=== PATIENT | male | born 1945 | race Caucasian/White ===

== ENCOUNTER 2022-11-26 18:13 | Observation (INO) | payer OTHER, SELFPAY ==
[2022-11-26] VITALS (10 sets, daily range): BP systolic 99–143; BP diastolic 56–73; PULSE 82–98; RESP 16–23; TEMP 37.1; O2SAT 95–97
--- NOTE | ~2022-11-26 | XR_ITS ---
XR chest 1V portable 11/27/2022 06:34 Indication: Nausea and vomiting Procedure: AP portable chest Comparison: No prior studies for comparison. Findings: Heart size normal. There are bilateral interstitial infiltrates. No pleural effusion or pne umothorax. Calcified granulomas are present. No acute osseous abnormality. Impression: 1: Bilateral interstitial infiltrates, likely mild interstitial edema. Reviewed, dictated and finalized at location A. [facility] [employer] Impression: 1: Bilateral interstitial infiltrates, likely mild interstitial edema.
[2022-11-26 18:40] LABS: Basophils Absolute Auto 0.1 K/mm3 (0.0-0.1); Basophils Percent Auto 0.5 % (0.2-1.2); Eosinophils Absolute Auto 1.3 K/mm3 (0-0.3); Eosinophils Percent Auto 10.3 % (0-4.4); Hematocrit 51.2 % (42.0-52.0); Hemoglobin 17.1 g/dL (14.0-18.0); Immature Granulocyte Absolute 0.04 K/mm3 (0.00-0.031); Immature Granulocyte Percent A 0.3 % (0-0.5); Lymphocytes Absolute Auto 0.59 K/mm3 (0.9-3.2); Lymphocytes Percent Auto 4.8 % (18.3-44.2); Mean Corpuscular HGB Conc 33.4 g/dl (32-36); Mean Corpuscular Hemoglobin 29.8 pg (26-34); Mean Corpuscular Volume 89.4 fl (80-100); Mean Platelet Volume 11.5 fl (7.4-10.4); Monocytes Absolute Auto 0.5 K/mm3 (0.1-0.6); Monocytes Percent Auto 4.3 % (2.6-8.5); Neutrophils Absolute Auto 9.8 K/mm3 (1.3-6.7); Neutrophils Percent Auto 79.8 % (45.5-73.1); Platelet Count Result 208 k/mm3 (150-375); Red Blood Count 5.73 M/mm3 (4.6-6.20); Red Cell Distribution Width 13.5 % (11.5-14.5); White Blood Count 12.3 K/mm3 (4.5-10.0)
[2022-11-26 18:50] LABS: Alanine Aminotransferase 28 U/L (6-50); Albumin Level 3.6 g/dL (3.5-5.1); Alkaline Phosphatase 136 U/L (38-126); Anion Gap 9 mmol/L (8-16); Aspartate Amino Transferase 28 U/L (17-59); Bilirubin,Total 0.8 mg/dL (0.2-1.3); Blood Urea Nitrogen 26 mg/dL (9-20); Calcium 8.5 mg/dL (8.4-10.2); Carbon Dioxide 26 mmol/L (22-30); Chloride 106 mmol/L (98-107); Estimated CRCL calculation 47 ml/min; Estimated Glomerular Filt Rate 49; Glucose 154 mg/dL (65-110); Lipase 105 U/L (23-300); Potassium 3.9 mmol/L (3.4-5.0); Sodium 141 mmol/L (137-145)
--- NOTE | 2022-11-26 19:11 | ED.GENADULT ---
HPI - General Adult General Chief complaint: Nausea/Vomiting/Diarrhea Stated complaint: N/V/D Time Seen by Provider: 11/26/22 18:47 History of Present Illness HPI narrative: 69-year-old male presented to the emergency department for evaluation of nausea vomiting and diarrhea that started this morning. Patient states since approximately 7 AM he has had multiple bouts of diarrhea and vomiting. Patient states he did attempt to take some Imodium that this did help with the diarrhea. Patient states he now just has complaint of generalized weakness. Patient denies any associated abdominal pain. Patient does have history of high cholesterol, hypertension. Patient denies any abdominal surgical history. Family was present during the interview. Related Data Allergies Allergy/AdvReac Type Severity Reaction Status Date / Time No Known Allergies Allergy Verified 11/26/22 21:28 Review of Systems Review of Systems: CONSTITUTIONAL: Denies fever, chills, or sweats. EYES: Denies visual changes, redness, or discharge. ENT: Denies rhinorrhea, congestion, sore throat, or otalgia. CARDIOVASCULAR: Denies chest pain, palpitations, or edema. RESPIRATORY: Denies cough or dyspnea. GASTROINTESTINAL: See HPI GENITOURINARY: Denies dysuria or hematuria. SKIN: Denies rash or itching. MUSCULOSKELETAL: Denies back pain, joint pain, or myalgia. NEUROLOGIC: Denies headache, numbness, or weakness. Exam Narrative: APPEARANCE: Well appearing, no pain, no distress, well-nourished. HEAD: normocephalic, atraumatic. EYES: PERRLA/EOMI, conjunctivae clear. NOSE: Normal no drainage NECK: Supple. No adenopathy, no masses. RESPIRATORY: Airway patent, respirations nonlabored. Clear to auscultation bilaterally, no rales, rhonchi, wheezing. CARDIOVASCULAR: Regular rate and rhythm without murmurs rubs or gallops. ABDOMINAL: Soft, nontender, nondistended, increased bowel sounds MUSCULOSKELETAL: Moves all extremities. Strength/ROM intact, No edema, No calf tenderness. NEURO: Alert. Cranial nerves II through XII intact. Grossly intact SKIN: Warm, dry. Normal Color Course Course Emergency Course: Patient denies any pain and has no abdominal tenderness to palpation. Patient has a nonsurgical abdomen. Patient will have labs ordered to rule out any significant electrolyte abnormalities. No concern for obstruction. With no pain I have less concern for diverticulitis or colitis. Patient does feel improved with treatment. Patient does have a leukocytosis. Patient's CMP shows no significant abnormalities. Patient does have a mild BROWN but patient's baseline creatinine is unknown. Patient was treated with 1 L normal saline and IV Zofran. Patient is tolerating p.o. Patient does feel improved. Prior to discharge patient did have orthostatic vital signs and was still very orthostatic. Patient felt excessively weak and was unable to ambulate. Patient was treated with a second liter of normal saline. Case was discussed with hospitalist and patient was accepted for admission. Family was comfortable with the plan for admission. All questions and concerns were addressed. Vital Signs Vital signs: Vital Signs Temperature 98.8 F 11/26/22 18:14 Pulse Rate 98 11/26/22 18:14 Respiratory Rate 20 11/26/22 18:14 Blood Pressure 143/73 H 11/26/22 18:14 Pulse Oximetry 96 11/26/22 18:14 Oxygen Delivery Room Air 11/26/22 18:14 Temperature 98.8 F 11/26/22 18:14 Pulse Rate 84 11/26/22 21:37 Respiratory Rate 23 H 11/26/22 21:37 Blood Pressure 113/61 11/26/22 21:37 Pulse Oximetry 96 11/26/22 21:37 Oxygen Delivery Room Air 11/26/22 18:14 Medical Decision Making Vital Signs Vital Signs: Vital Signs Temperature 98.8 F 11/26/22 18:14 Pulse Rate 98 11/26/22 18:14 Respiratory Rate 20 11/26/22 18:14 Blood Pressure 143/73 H 11/26/22 18:14 Pulse Oximetry 96 11/26/22 18:14 Oxygen Delivery Room Air 11/26/22 18:14 Temperatu
--- NOTE | 2022-11-26 19:12 | PC.NURSE ---
1909 Assumed pt care from Pretty Robert RN
[2022-11-26] MEDS: ONDANSETRON INJ 4 MG/2 ML VIAL IV PUSH (19:39)
[2022-11-26] MEDS: SODIUM CHLORIDE 0.9% IV 1,000 ML 999 ML IV CONT ×2 (19:39→21:28)
--- NOTE | 2022-11-26 21:43 | PM.IMHP ---
H&P: HPI History of Present Illness Date/Time: 11/26/22 21:43 Chief Complaint: Generalized weakness Narrative: This is a 77-year-old male with past medical history significant for hypertension, chronic kidney disease, dyslipidemia. Was brought to the emergency room via EMS due to generalized weakness unable to get out from bed after having 1 day of numerous episodes of nausea vomiting and diarrhea. Patient denies any fevers, rigors, chills, syncope, near syncope in emergency room received IV fluids and upon checking orthostatic hypotension patient became hypotensive upon standing. Preliminary workup was significant for a creatinine of 1.4 mild leukocytosis of 12,000. Review of Systems Review of Systems: Generalized weakness Constitutional: Constitutional: Denies chills, Denies fever(s), Denies malaise, Denies night sweats, Denies poor appetite and Reports weakness Eyes: Eyes: Denies change in vision ENT: Denies dysphagia, Denies vertigo, Denies dizziness and Denies odynophagia Cardiovascular: Cardiovascular: Denies chest pain, Denies leg edema, Reports lightheadedness, Denies radiating jaw, neck or arm pain and Denies palpitations Respiratory: Respiratory: Denies cough Gastrointestinal: Gastrointestinal: Denies abdominal pain, Denies nausea and Denies vomiting Genitourinary: Genitourinary: Denies dysuria Musculoskeletal: Musculoskeletal: Denies myalgias and Reports muscle weakness Integumentary/Breasts: Skin/Breast: Denies rash Neurologic: Denies vertigo, Denies dizziness, Denies focal weakness and Denies Sensory deficit (Neuro) Psychiatric: Psychiatric: Reports no additional psychiatric complaints and Reports as per HPI Endocrine: Endocrine: Denies cold intolerance, Denies flushing, Denies heat intolerance, Denies polyphagia, Denies polydipsia and Denies palpitations Hematologic/Lymphatic: Hematologic/Lymphatic: Reports no additional hematologic/lymphatic complaints and Reports as per HPI Allergic/Immunologic: Allergic/Immunologic: Reports no additional allergic/immunologic complaints and Reports as per HPI PMF Family History Family History (Updated 11/26/22 @ 23:53 by Ene Wilson RN) Other Unknown family medical history Social History Social History Smoking status: Former smoker Tobacco type: cigarettes Alcohol intake: never Substance use: never Lack of Transportation: No Lack of Food: Never True Current Housing: I Have Housing Concerned About Future Housing: No Difficulty Paying Gas/Electric Bills: No Difficulty Paying for Meds: No Currently Unemployed: No Education: High School Diploma/GED Difficulty w/ Childcare or Family Care: No Spiritual care concerns: No Meds Home Medications and Allergies Home Medications Medication Instructions Recorded Confirmed Type amlodipine 2.5 mg tablet 7.5 mg PO DAILY 11/26/22 History cyanocobalamin (vitamin B-12) 500 500 mcg PO DAILY 11/26/22 History mcg tablet (Vitamin B-12) lisinopril 40 mg tablet 40 mg PO DAILY 11/26/22 History simvastatin 40 mg tablet 20 mg PO HS 11/26/22 History vit C 250 mg-vit E 200 unit-zinc 1 tablet PO QAM AND QPM 11/26/22 History 12.5 mg-copper 1 [id number] tablet (ICaps AREDS2 (copper citrate)) Allergies Allergy/AdvReac Type Severity Reaction Status Date / Time No Known Allergies Allergy Verified 11/26/22 21:28 Vital Signs Vital Signs - 24 hr 11/26/22 18:14 11/26/22 18:48 11/26/22 20:00 Temperature 98.8 F Pulse Rate 98 90 84 Respiratory Rate 20 20 16 Blood Pressure 143/73 H 105/71 125/63 Pulse Oximetry 96 97 97 Oxygen Delivery Room Air 11/26/22 20:45 11/26/22 20:46 11/26/22 21:08 Temperature Pulse Rate 87 88 85 Respiratory Rate 18 21 H Blood Pressure 118/56 L 134/61 Pulse Oximetry 97 95 Oxygen Delivery 11/26/22 21:08 11/26/22 21:30 Temperature Pulse Rate 88 85 Respiratory Rate 22 H Blood Pressure 99/56 L 113/61
[2022-11-26] MEDS: SODIUM CHLORIDE 0.9% IV 1,000 ML 125 ML IV CONT (22:40)
--- NOTE | 2022-11-26 23:50 | ADMGEN ---
This patient, Mansoor Gonzalez, was admitted to Medical Room 252-01. Patient/family oriented to hospital policies and general routines including ID bracelet, bed and alarms, visiting hours, pain management, procedures, bathroom and other care routines, personal items, smoking policy, room service/diet, and visiting hours. Information on how to activate the Rapid Response Team has been discussed. Patient/Family are encouraged to report perceived risks to care and to ask questions if they do not understand what they are told or what they should do.
[2022-11-27 01:17] VITALS: BP 136/59; PULSE 81; RESP 18; TEMP 36.7; O2SAT 96
[2022-11-27 06:00] VITALS: BP 142/61; PULSE 72; RESP 18; TEMP 36.7; O2SAT 95
[2022-11-27 08:39] LABS: Glucose Point of Care 119 mg/dl (65-105)
[2022-11-27] MEDS: PANTOPRAZOLE SODIUM IV 40 MG VIAL IV PUSH ×2 (09:27→20:25)
--- NOTE | 2022-11-27 11:41 | PM.IMPN ---
Progress Note: A&P Assessment and Plan (1) Nausea vomiting and diarrhea: Code(s): R11.2 - Nausea with vomiting, unspecified; R19.7 - Diarrhea, unspecified Status: Acute Assessment and Plan: Supportive care Stools studies in progress Stool occult for blood came back positive GI consult pending (2) Orthostatic hypotension: Code(s): I95.1 - Orthostatic hypotension Status: Acute Assessment and Plan: IV fluids, supportive care Orthostatic vital signs resolving (3) Diarrhea: Code(s): R19.7 - Diarrhea, unspecified Status: Acute Assessment and Plan: Stool studies in progress Plan DVT prophylaxis with SCDs GI prophylaxis with PPI Code status full code Subjective Date/time seen: 11/27/22 11:41 Interval history: No overnight events noted. No chest pain or shortness of breath. No nausea, vomiting. No fevers or chills. No sick contacts or recent travel. Still with consistent diarrhea, unchanged. Denies abdominal pain or cramping. Review of Systems Review of Systems: 12 point review of systems was assessed and was negative except as noted in the HPI Exam Narrative: General: No acute distress, alert and oriented per baseline HEENT: Atraumatic, normocephalic, mucous membranes moist CV: Regular rate and rhythm, S1, S2 Lungs: Clear to auscultation bilaterally, no rales or crackles noted, no wheezes, good air entry Abdomen: Soft, nontender, nondistended Extremities: Normal to inspection Skin: No rashes noted, no lesions or wounds seen Psych: Euthymic, normal affect Objective Data Vital Signs Vital Signs: Vital Signs - 24 hr 11/26/22 18:14 11/26/22 18:48 11/26/22 20:00 Temperature 98.8 F Pulse Rate 98 90 84 Respiratory Rate 20 20 16 Blood Pressure 143/73 H 105/71 125/63 Pulse Oximetry 96 97 97 Oxygen Delivery Room Air 11/26/22 20:45 11/26/22 20:46 11/26/22 21:08 Temperature Pulse Rate 87 88 85 Respiratory Rate 18 21 H Blood Pressure 118/56 L 134/61 Pulse Oximetry 97 95 Oxygen Delivery 11/26/22 21:08 11/26/22 21:30 11/26/22 21:37 Temperature Pulse Rate 88 85 84 Respiratory Rate 22 H 23 H Blood Pressure 99/56 L 113/61 113/61 Pulse Oximetry 97 96 Oxygen Delivery 11/26/22 22:15 11/26/22 23:36 11/27/22 00:41 Temperature Pulse Rate 82 82 Respiratory Rate 18 18 Blood Pressure 135/62 111/58 L Pulse Oximetry 97 97 Oxygen Delivery Room Air 11/27/22 01:17 11/27/22 06:00 11/27/22 07:30 Temperature 98.0 F 98.0 F Pulse Rate 81 72 Respiratory Rate 18 18 Blood Pressure 136/59 L 142/61 H Pulse Oximetry 96 95 Oxygen Delivery Room Air Intake/Output Intake/Output: Intake & Output 11/24/22 11/25/22 11/26/22 11/27/22 23:59 23:59 23:59 23:59 Intake Total 1999 660 Balance 1999 660 Meds/Results Medications: Active Medications Generic Name Dose Route Start Last Admin Trade Name Freq PRN Reason Stop Dose Admin Sodium Chloride 1,000 mls @ 125 mls/hr 11/26/22 21:50 11/26/22 22:40 Normal Saline Iv IV CONT 125 mls/hr .Q8H HALEY Administration Ondansetron HCl 4 mg 11/26/22 21:50 Ondansetron Inj 4 Mg/2 Ml Vial IV PUSH Q4H PRN Nausea Pantoprazole Sodium 40 mg 11/27/22 09:00 11/27/22 09:27 Pantoprazole Sodium Iv 40 Mg Vial IV PUSH 40 mg Q12HR HALEY Administration Radiology Results: ITS Impressions Chest X-Ray 11/27/22 07:35 Impression: 1: Bilateral interstitial infiltrates, likely mild interstitial edema. Labs Labs: Laboratory Results - last 24 hr 11/26/22 11/26/22 11/27/22 18:34 18:34 08:16 WBC 12.3 H RBC 5.73 Hgb 17.1 Hct 51.2 MCV 89.4 MCH 29.8 MCHC 33.4 RDW 13.5 Plt Count 208 MPV 11.5 H Immature Gran % (Auto) 0.3 Neut % (Auto) 79.8 H Lymph % (Auto) 4.8 L [place] % (Auto) 4.3 Eos % (Auto) 10.3 H Baso % (Auto) 0.5 Lymph # (Auto) 0.59 L [place] # (Auto) 0.5
[2022-11-27] MEDS: SODIUM CHLORIDE 0.9% IV 1,000 ML 125 ML IV CONT ×2 (11:59→20:25)
[2022-11-27 13:40] LABS: Appearance Urine Clear (Clear); Bilirubin Urine 1+ (Negative); Blood Urine Trace-lysed (Negative); Color Urine Dark Yellow (Yellow); Glucose Urine UA Negative (Negative); Ketones Urine Negative (Negative); Leukocyte Esterase Ur Negative LEU/UL (Negative); Nitrate Urine Negative (Negative); Protein Urine 1+ mg/dL (Negative); Specific Grav Ur >= 1.030 (1.001-1.035); Urobilinogen Urine 0.2 mg/dL (<2.0)
[2022-11-27 13:49] LABS: Bacteria Urine Trace /hpf; Mucus Urine Rare /lpf; RBC Urine 21-50 /hpf (0-2); Squamous Epithelial Cell Urine Rare /hpf (Few)
[2022-11-27 13:51] LABS: Add Urine Microscopic? YES
[2022-11-27 14:00] VITALS: BP 125/60; PULSE 70; RESP 14; TEMP 36.3; O2SAT 97
[2022-11-27 15:01] LABS: IFOB Positive Control Positive; Immunochemical Fecal Occult Bl Positive (N)
[2022-11-27] MEDS: OPTI-GEN TAB 1 TABLET PO (17:51)
--- NOTE | 2022-11-27 19:51 | WPDGICN ---
Assessment and Plan Assessment and plan (1) Diarrhea: Code(s): R19.7 - Diarrhea, unspecified Status: Acute Assessment and Plan: enterocolitis probably infectious but already doing better pending stool sample no fever, no need of abx just yet also had FOBT but probably from active infection- he never had colonoscopy and he is willing to have one- will schedule one as outpatient once he is fully recovered (2) Orthostatic hypotension: Code(s): I95.1 - Orthostatic hypotension Status: Acute Assessment and Plan: from gi losses medical management and iv fluids (3) Nausea vomiting and diarrhea: Code(s): R11.2 - Nausea with vomiting, unspecified; R19.7 - Diarrhea, unspecified Status: Acute Assessment and Plan: better advance diet (4) Dehydration: Code(s): E86.0 - Dehydration Status: Acute (5) BROWN (acute kidney injury): Code(s): N17.9 - Acute kidney failure, unspecified Status: Acute (6) Occult blood in stools: Code(s): R19.5 - Other fecal abnormalities Status: Acute Assessment and Plan: probably from diarrhea will set up colonoscopy as outpatient h/h normal GI Consult Note Consult date/time: 11/27/22 19:51 Reason for consult: n/v, diarrhea, fobt + HPI: Mansoor Gonzalez is a 77 year old male with past medical history significant for hypertension, chronic kidney disease, dyslipidemia.? He came to the emergency room via EMS due to new onset of profuse diarrhea, generalized weakness along with nausea and vomiting for 1 day. He denies fevers, rigors, chills, no sick contact and no previous episode. Had near syncope in emergency room received IV fluids and had orthostatic hypotension after vital signs checked in ER. Blood work creatinine of 1.4 mild leukocytosis of 12,000m hb 17. Also had FOBT but denies overt gib. Today had 3 BM and feeling better. Never had colonoscopy but had negative occult stool card at the [facility]. Review of Systems Review of Systems: Generalized weakness Constitutional: Constitutional: Denies chills, Denies fever(s), Denies malaise, Denies night sweats, Denies poor appetite and Reports weakness Eyes: Eyes: Denies change in vision ENT: Denies dysphagia and Denies odynophagia Cardiovascular: Cardiovascular: Denies chest pain, Denies leg edema and Reports lightheadedness Respiratory: Respiratory: Denies cough Gastrointestinal: Gastrointestinal: Denies abdominal pain, Reports diarrhea, Denies nausea and Denies vomiting Genitourinary: Genitourinary: Denies dysuria Musculoskeletal: Musculoskeletal: Denies myalgias and Reports muscle weakness Integumentary/Breasts: Skin/Breast: Denies rash Neurologic: Denies vertigo, Denies dizziness, Denies focal weakness and Denies Sensory deficit (Neuro) Psychiatric: Psychiatric: Reports no additional psychiatric complaints and Reports as per HPI Endocrine: Endocrine: Denies cold intolerance Hematologic/Lymphatic: Hematologic/Lymphatic: Reports no additional hematologic/lymphatic complaints and Reports as per HPI Allergic/Immunologic: Allergic/Immunologic: Reports no additional allergic/immunologic complaints and Reports as per HPI [facility] Past Medical History Medical History (Updated 11/27/22 @ 19:57 by Bryan Villanueva MD) BROWN (acute kidney injury) Dehydration Occult blood in stools Family History Family History (Updated 11/26/22 @ 23:53 by Ene Wilson RN) Other Unknown family medical history Social History Social History Smoking status: Former smoker Tobacco type: cigarettes Alcohol intake: never Substance use: never Lack of Transportation: No Lack of Food: Never True Current Housing: I Have Housing Concerned About Future Housing: No Difficulty Paying Gas/Electric Bills: No Difficulty Paying for Meds: No Currently Unemployed: No Education: High School Diploma/GED Difficulty w/ Childcare or
[2022-11-27] MEDS: SIMVASTATIN 20 MG TABLET PO (20:26)
[2022-11-27 21:12] VITALS: BP 160/64; PULSE 73; RESP 18; TEMP 36.8; O2SAT 96
[2022-11-28 05:01] VITALS: BP 142/61; PULSE 73; RESP 18; TEMP 37.1; O2SAT 95
[2022-11-28] MEDS: SODIUM CHLORIDE 0.9% IV 1,000 ML 125 ML IV CONT (05:47)
[2022-11-28 06:21] LABS: Basophils Percent Auto 0.1 % (0.2-1.2); Hematocrit 38.5 % (42.0-52.0); Hemoglobin 12.4 g/dL (14.0-18.0); Immature Granulocyte Absolute 0.03 K/mm3 (0.00-0.031); Immature Granulocyte Percent A 0.4 % (0-0.5); Lymphocytes Absolute Auto 1.14 K/mm3 (0.9-3.2); Lymphocytes Percent Auto 14.6 % (18.3-44.2); Mean Corpuscular HGB Conc 32.2 g/dl (32-36); Mean Corpuscular Hemoglobin 30.2 pg (26-34); Mean Corpuscular Volume 93.7 fl (80-100); Mean Platelet Volume 12.1 fl (7.4-10.4); Monocytes Absolute Auto 0.6 K/mm3 (0.1-0.6); Monocytes Percent Auto 7.8 % (2.6-8.5); Neutrophils Absolute Auto 4.1 K/mm3 (1.3-6.7); Neutrophils Percent Auto 52.1 % (45.5-73.1); Platelet Count Result 147 k/mm3 (150-375); Red Blood Count 4.11 M/mm3 (4.6-6.20); White Blood Count 7.8 K/mm3 (4.5-10.0)
[2022-11-28 06:29] LABS: Alanine Aminotransferase 16 U/L (6-50); Albumin Level 2.6 g/dL (3.5-5.1); Alkaline Phosphatase 100 U/L (38-126); Anion Gap 4 mmol/L (8-16); Aspartate Amino Transferase 20 U/L (17-59); Bilirubin,Total 0.6 mg/dL (0.2-1.3); Blood Urea Nitrogen 23 mg/dL (9-20); Calcium 7.9 mg/dL (8.4-10.2); Carbon Dioxide 26 mmol/L (22-30); Chloride 110 mmol/L (98-107); Estimated CRCL calculation 50 ml/min; Estimated Glomerular Filt Rate 53; Glucose 85 mg/dL (65-110); Potassium 3.7 mmol/L (3.4-5.0); Sodium 140 mmol/L (137-145)
[2022-11-28] MEDS: OPTI-GEN TAB 1 TABLET PO (07:31)
[2022-11-28] MEDS: PANTOPRAZOLE SODIUM IV 40 MG VIAL IV PUSH (07:31)
--- NOTE | 2022-11-28 08:24 | PM.DS ---
DS: Admitting Diagnosis Discharge Date 11/28/22 Admitting Diagnosis weakness DS: Discharge Diagnosis Discharge Diagnosis (1) Nausea vomiting and diarrhea: Code(s): R11.2 - Nausea with vomiting, unspecified; R19.7 - Diarrhea, unspecified Status: Acute Assessment and Plan: Supportive care Stool studies in progress Stool occult for blood came back positive GI consult pending (2) Orthostatic hypotension: Code(s): I95.1 - Orthostatic hypotension Status: Acute Assessment and Plan: IV fluids, supportive care Orthostatic vital signs resolving (3) Diarrhea: Code(s): R19.7 - Diarrhea, unspecified Status: Acute Assessment and Plan: Stool studies in progress Plan DVT prophylaxis with SCDs GI prophylaxis with PPI Code status full code DS: Summary Hospital Course Hospital Course: 77-year-old male with past medical history significant for hypertension, chronic kidney disease, dyslipidemia.? Was brought to the emergency room via EMS due to generalized weakness unable to get out from bed after having 1 day of numerous episodes of nausea vomiting and diarrhea.? Patient denies any fevers, rigors, chills, syncope, near syncope in emergency room received IV fluids and upon checking orthostatic hypotension patient became hypotensive upon standing.? Preliminary workup was significant for a creatinine of 1.4 mild leukocytosis of 12,000. GI consult states the patient likely had enterocolitis probably infectious but already doing better, pending stool sample, no fever, no need of abx just yet, also had FOBT but probably from active infection- he never had colonoscopy and he is willing to have one- will schedule one as outpatient once he is fully recovered. All symptoms resolved and patient was d/c in stable condition with close outpatient follow up with GI. Time Spent with Patient Time attestation: Total time spent providing and/or coordinating discharge services: Exam Narrative: General: No acute distress, alert and oriented per baseline HEENT: Atraumatic, normocephalic, mucous membranes moist CV: Regular rate and rhythm, S1, S2 Lungs: Clear to auscultation bilaterally, no rales or crackles noted, no wheezes, good air entry Abdomen: Soft, nontender, nondistended Extremities: Normal to inspection Skin: No rashes noted, no lesions or wounds seen Psych: Euthymic, normal affect DS: Data Data Completed and Pending Labs on day of discharge: Labs from last 24 hours 11/28/22 11/28/22 11/27/22 05:34 05:34 13:12 WBC 7.8 RBC 4.11 L Hgb 12.4 L D Hct 38.5 L MCV 93.7 MCH 30.2 MCHC 32.2 RDW 14.0 Plt Count 147 L MPV 12.1 H Immature Gran % (Auto) 0.4 Neut % (Auto) 52.1 Lymph % (Auto) 14.6 L [place] % (Auto) 7.8 Eos % (Auto) 25.0 H Baso % (Auto) 0.1 L Lymph # (Auto) 1.14 [place] # (Auto) 0.6 Eos # (Auto) 2.0 H Baso # (Auto) 0.0 Abs Immat Gran (auto) 0.03 Absolute Neuts (auto) 4.1 Absolute Nucleated RBC 0.0 Nucleated RBC % 0.0 Sodium 140 Potassium 3.7 Chloride 110 H Carbon Dioxide 26 Anion Gap 4 L BUN 23 H Creatinine 1.30 Estim Creat Clear Calc 50 Estimated GFR 53 L Glucose 85 POC Capillary Glucose Calcium 7.9 L Total Bilirubin 0.6 AST 20 ALT 16 Alkaline Phosphatase 100 Total Protein 5.0 L Albumin 2.6 L Urine Color Dark yellow Urine Appearance Clear Urine pH 5.0 Ur Specific [place] >= 1.030 Urine Protein 1+ H Urine Glucose (UA) Negative Urine Ketones Negative Ur Blood (Man) Trace-lysed Urine Nitrate Negative Urine Bilirubin 1+ H Urine Urobilinogen 0.2 Leukocyte Esterase Rfl Negative Urine RBC 21-50 H Urine WBC 7-9 H Ur Squamous Epith Cells Rare Urine Bacteria Trace Hyaline Casts 5-9 H Urine Mucus Rare Stl Occult Blood (IFOB) 11/27/22 11/27/22 08:16 00:55 WBC RBC Hgb
[2022-12-02 18:54] LABS: Rotavirus Stool Not Detected
[2022-12-07 03:52] LABS: Norovirus RNA PCR, Stool NOT DETECTED
== END 2022-11-28 11:02 | disposition home or self-care (01) ==
LOC: ANHED 20:59 → ANH2MED 23:40
PROVIDERS: Admitting Provider Internal Medicine; Emergency Provider Emergency Medicine; Visit Provider Student in an Organized Health Care Education/Training Program
DX: R11.2 Nausea with vomiting, unspecified (principal); I95.1 Orthostatic hypotension; E86.0 Dehydration; R19.7 Diarrhea, unspecified; R19.5 Other fecal abnormalities; I12.9 Hypertensive chronic kidney disease with stage 1 through stage 4 chronic kidney disease, or unspecified chronic kidney disease; N18.9 Chronic kidney disease, unspecified; E78.5 Hyperlipidemia, unspecified; Z87.891 Personal history of nicotine dependence
CPT/HCPCS: 36415; 71045; 80053; 81001; 82274; 82948; 83690; 85025; 87045; 87086; 87088; 87177; 87209; 87269; 87272; 87425; 87427; 87798; 89055; 96361; 96374; 96375; 96376; 97162; 97165; 99285; A9270; C9113; G0378; J2405; J7030

== ENCOUNTER 2022-12-14 08:17 | Emergency (ER) | payer OTHER, SELFPAY ==
[2022-12-14] VITALS (52 sets, daily range): BP systolic 103–182; BP diastolic 58–87; PULSE 70–90; RESP 10–28; TEMP 37.1; O2SAT 96–100
--- NOTE | 2022-12-14 08:37 | ECG_ITS ---
Measurements Intervals [place] Rate: 84 P: 59 CO: 218 QRS: 18 QRSD: 112 T: 33 QT: 352 QTc: 417 Interpretive Statements SINUS RHYTHM WITH FIRST DEGREE AV BLOCK MODERATE INTRAVENTRICULAR CONDUCTION DELAY [110+ ms QRS DURATION] NONSPECIFIC ST & T-WAVE ABNORMALITY NO PREVIOUS ECG AVAILABLE FOR COMPARISON Electronically Signed On 12-14-2022 15:27:01 [employer] by Renato Sharp M.D.
--- NOTE | 2022-12-14 09:05 | PC.NURSE ---
pt reports falling while in the bathroom yesterday,states he has been feeling weak for the past few weeks, confirms dizziness, pt denies any injury with the fall no LOC or head injury.
[2022-12-14 09:06] LABS: Basophils Absolute Auto 0.1 K/mm3 (0.0-0.1); Basophils Percent Auto 1.3 % (0.2-1.2); Eosinophils Absolute Auto 0.2 K/mm3 (0-0.3); Eosinophils Percent Auto 3.3 % (0-4.4); Hematocrit 42.3 % (42.0-52.0); Immature Granulocyte Absolute 0.02 K/mm3 (0.00-0.031); Immature Granulocyte Percent A 0.4 % (0-0.5); Lymphocytes Absolute Auto 0.71 K/mm3 (0.9-3.2); Mean Corpuscular HGB Conc 35.5 g/dl (32-36); Mean Corpuscular Hemoglobin 30.6 pg (26-34); Mean Corpuscular Volume 86.3 fl (80-100); Mean Platelet Volume 11.9 fl (7.4-10.4); Monocytes Absolute Auto 0.4 K/mm3 (0.1-0.6); Monocytes Percent Auto 7.3 % (2.6-8.5); Neutrophils Absolute Auto 4.1 K/mm3 (1.3-6.7); Neutrophils Percent Auto 74.7 % (45.5-73.1); Platelet Count Result 226 k/mm3 (150-375); Red Cell Distribution Width 13.4 % (11.5-14.5); White Blood Count 5.5 K/mm3 (4.5-10.0)
[2022-12-14 09:09] LABS: Lactic Acid Reflex 1.2 mmol/L (0.7-2.0)
[2022-12-14 09:10] LABS: INR 1.1; Partial Thromboplastin Time 30.1 SECONDS (22.3-36.8)
[2022-12-14 09:20] LABS: Appearance Urine Clear (Clear); Bilirubin Urine Negative (Negative); Blood Urine Negative (Negative); Color Urine Yellow (Yellow); Glucose Urine UA Negative (Negative); Ketones Urine Negative (Negative); Leukocyte Esterase Ur Negative LEU/UL (Negative); Nitrate Urine Negative (Negative); Protein Urine 2+ mg/dL (Negative); Specific Grav Ur 1.015 (1.001-1.035)
--- NOTE | 2022-12-14 09:22 | ED.GENADULT ---
HPI - General Adult General Chief complaint: Weakness Stated complaint: sick Time Seen by Provider: 12/14/22 08:31 History of Present Illness HPI narrative: 77-year-old male with history of acute kidney injury, high cholesterol, hypertension presented to the emergency department for feeling like shit . Patient states symptoms started last night. Patient states he did have a fall last night but denies striking head denies any loss of consciousness. Patient states he does have frequent falls and this is not unusual for him. Patient does describe some left thigh pain which he states is secondary to a war injury and that this hurts him all the time and denies any change in this pain. Patient denies any associated chest pain or shortness of breath. Patient denies any nausea vomiting or diarrhea. Patient states he has had normal p.o. intake. Patient is unable to describe his symptoms other than generalized weakness. Family member is present during the interview. Related Data Home Medications Medication Instructions Recorded Confirmed amlodipine 2.5 mg tablet 7.5 mg PO DAILY 11/26/22 11/26/22 cyanocobalamin (vitamin B-12) 500 500 mcg PO DAILY 11/26/22 11/26/22 mcg tablet (Vitamin B-12) lisinopril 40 mg tablet 40 mg PO DAILY 11/26/22 11/26/22 simvastatin 40 mg tablet 20 mg PO HS 11/26/22 11/26/22 vit C 250 mg-vit E 200 unit-zinc 1 tablet PO QAM AND QPM 11/26/22 11/26/22 12.5 mg-copper 1 [id number] tablet (ICaps AREDS2 (copper citrate)) Allergies Allergy/AdvReac Type Severity Reaction Status Date / Time No Known Allergies Allergy Verified 11/26/22 21:28 Review of Systems Review of Systems: CONSTITUTIONAL: See HPI EYES: Denies visual changes, redness, or discharge. ENT: Denies rhinorrhea, congestion, sore throat, or otalgia. CARDIOVASCULAR: Denies chest pain, palpitations, or edema. RESPIRATORY: Denies cough or dyspnea. GASTROINTESTINAL: Denies abdominal pain, nausea, vomiting, or diarrhea. GENITOURINARY: Denies dysuria or hematuria. SKIN: Denies rash or itching. MUSCULOSKELETAL: Denies back pain, joint pain, or myalgia. NEUROLOGIC: Denies headache, numbness, or weakness. FOR[facility]LY [facility] Past Medical History Medical History (Updated 12/14/22 @ 15:37 by Miguel Peoples MD) BROWN (acute kidney injury) Dehydration Occult blood in stools Family History Family History (Updated 11/26/22 @ 23:53 by Ene Wilson RN) Other Unknown family medical history Social History Social History Smoking status: Former smoker Tobacco type: cigarettes Alcohol intake: never Substance use: never Lack of Transportation: No Lack of Food: Never True Current Housing: I Have Housing Concerned About Future Housing: No Difficulty Paying Gas/Electric Bills: No Difficulty Paying for Meds: No Currently Unemployed: No Education: High School Diploma/GED Difficulty w/ Childcare or Family Care: No Spiritual care concerns: No Exam Narrative: APPEARANCE: Well appearing, no pain, no distress, well-nourished. HEAD: normocephalic, atraumatic. EYES: PERRLA/EOMI, conjunctivae clear. NOSE: Normal no drainage NECK: Supple. No adenopathy, no masses. RESPIRATORY: Airway patent, respirations nonlabored. Clear to auscultation bilaterally, no rales, rhonchi, wheezing. CARDIOVASCULAR: Regular rate and rhythm without murmurs rubs or gallops. ABDOMINAL: Soft, nontender, nondistended, normal bowel sounds MUSCULOSKELETAL: Moves all extremities. Strength/ROM intact, No edema, No calf tenderness. NEURO: Alert. Cranial nerves II through XII intact. Grossly intact SKIN: Warm, dry. Normal Color Course Course Emergency Course: 77-year-old male presented to the emergency department for symptoms of generalized weakness and not feeling well. Patient's symptoms are very nondescript. Patient is mildly hypertensive but did not take his blood pressure medications this morning. Patient is afebrile with no leukocytos
[2022-12-14 09:26] LABS: Alanine Aminotransferase 25 U/L (6-50); Albumin Level 4.1 g/dL (3.5-5.1); Alkaline Phosphatase 115 U/L (38-126); Anion Gap 7 mmol/L (8-16); Aspartate Amino Transferase 22 U/L (17-59); Bilirubin,Total 0.8 mg/dL (0.2-1.3); Blood Urea Nitrogen 17 mg/dL (9-20); Calcium 8.7 mg/dL (8.4-10.2); Carbon Dioxide 29 mmol/L (22-30); Chloride 102 mmol/L (98-107); Estimated CRCL calculation 73 ml/min; Estimated Glomerular Filt Rate > 60; Glucose 143 mg/dL (65-110); Potassium 3.6 mmol/L (3.4-5.0); Sodium 138 mmol/L (137-145)
[2022-12-14 09:28] LABS: Hyaline Casts Urine 20-29 /lpf; Mucus Urine Rare /lpf; RBC Urine 0-2 /hpf (0-2)
[2022-12-14 09:33] LABS: Add Urine Microscopic? YES
[2022-12-14 10:04] LABS: Influenza A QL RT-PCR Negative (Negative); Influenza B QL RT-PCR Negative (Negative); RSV RNA, RT-PCR Negative (Negative); SARS-CoV-2 RNA PCR Negative
[2022-12-14] MEDS: SODIUM CHLORIDE 0.9% IV 1,000 ML 999 ML IV CONT ×2 (11:24→13:11)
== END 2022-12-14 15:57 | disposition home or self-care (01) ==
PROVIDERS: Emergency Provider Emergency Medicine
DX: I95.1 Orthostatic hypotension (principal); Z20.822 Contact with and (suspected) exposure to COVID-19
CPT/HCPCS: 36415; 80053; 81001; 83605; 85025; 85610; 85730; 87637; 93005; 96360; 99283; J7030